=== PATIENT | male | born 1970 | race Caucasian/White ===

== ENCOUNTER 2021-05-07 13:43 | Emergency (ER) | payer OTHER ==
[2021-05-07 14:08] VITALS: BMI 36.0
[2021-05-07] MEDS ORDERED: KETOROLAC TROMETHAMINE 30 MG/1 ML VIAL IVPUSH ONE (15:37)
[2021-05-07] MEDS ORDERED: SODIUM CHLORIDE 0.9% 500 ML INFUS.BAG IV ONE (15:37)
[2021-05-07] MEDS ORDERED: LIDOCAINE 5% TOPICAL PATCH TP ONE (15:37)
[2021-05-07] MEDS ORDERED: ACETAMINOPHEN 1000 MG/100 ML VIAL IVPB ONE (15:40)
[2021-05-07] MEDS ORDERED: KETOROLAC TROMETHAMINE 30 MG/1 ML VIAL ONE (16:17)
[2021-05-07] MEDS ORDERED: LIDOCAINE 5% TOPICAL PATCH ONE (16:17)
[2021-05-07 16:37] VITALS: BP 136/83; TEMP 99.5
[2021-05-07 17:13] LABS: EPI CELLS 5 /uL (0-25.1); HYALINE CASTS 0 /uL (0-3.1); URINE APPEARANCE CLEAR; URINE BACTERIA 5 /uL (0-1359); URINE BILIRUBIN NEGATIVE (NEGATIVE); URINE COLOR YELLOW; URINE GLUCOSE (UA) NEGATIVE (NEGATIVE); URINE KETONE NEGATIVE (NEGATIVE); URINE LEUK ESTERASE NEGATIVE (NEGATIVE); URINE NITRITE NEGATIVE (NEGATIVE); URINE PROTEIN 1+ (NEGATIVE); URINE RBC 19 /uL (0-23.9); URINE WBC 9 /uL (0-25.8)
[2021-05-07 17:17] LABS: HEMATOCRIT 44.5 % (35.4-49); HEMOGLOBIN 15.4 GM/dL (11.7-16.9); MCH 32.2 pg (25.7-33.7); MCHC 34.6 g/dl (32.0-35.9); PLATELET COUNT 171 10^3/uL (134-434); RBC 4.78 M/mm3 (4.00-5.60)
[2021-05-07 17:58] VITALS: PULSE 102
[2021-05-07 18:09] LABS: ALBUMIN 3.8 g/dl (3.4-5.0); BILIRUBIN,TOTAL 0.3 mg/dL (0.2-1); CALCIUM 8.7 mg/dL (8.5-10.1); CREATININE 0.9 mg/dL (0.55-1.3)
[2021-05-07] MEDS ORDERED: LIDOCAINE PATCH REMOVAL MC SCH (22:00)
== END 2021-05-07 18:22 | disposition home or self-care (01) ==
LOC: JER 13:43
PROC: 3E0333Z Introduction of Anti-inflammatory into Peripheral Vein, Percutaneous Approach (ICD-10-PCS; principal; 2021-05-07)
PROC: 3E033GC Introduction of Other Therapeutic Substance into Peripheral Vein, Percutaneous Approach (ICD-10-PCS; 2021-05-07)
DX: M54.50 Low back pain, unspecified (principal)
CPT/HCPCS: 36415; 72100-TC-FY; 80053; 81003; 85027; 87086; 87804; 96365; 96375; 99285-25; C9803; J0131; U0003; U0005